=== PATIENT | female | born 1985 | race Caucasian/White ===

== ENCOUNTER 2022-09-20 18:46 | Emergency (ER) | payer SELFPAY ==
[~2022-09-20] VITALS: Ht 165.1 cm; Wt 105.7 kg
[2022-09-20 19:15] VITALS: BP 138/72
--- NOTE | 2022-09-20 19:15 | NUR ---
C/O LEFT KNEE PAIN S/P FALL FROM SKIING YESTERDAY. NO DEFORMITY NOTED. LIMITED ROM. PLACED COMFORTABLY IN BED.
--- NOTE | 2022-09-20 19:27 | NUR ---
XRAY DONE AT BEDSIDE
--- NOTE | 2022-09-20 20:42 | NUR ---
Patient discharged to home in stable condition. Written and verbal after care instructions given. Patient verbalizes understanding of instruction.
== END 2022-09-20 20:42 | disposition home or self-care (01) ==
LOC: ER 19:02
DX: M25.562 Pain in left knee (principal)
CPT/HCPCS: 73564-TC